=== PATIENT | male | born 1995 | race American Indian/Alaskan Native ===

== ENCOUNTER 2019-04-08 11:05 | Emergency (ER) | payer SELFPAY ==
[2019-04-08] MEDS ORDERED: NACL 0.9% 500 ML 500 ML IV ONE (11:13)
--- NOTE | 2019-04-08 11:35 | Event Note ---
ED Screening Note Date of service: 04/08/19 Time: 11:29 ED Screening Note: 23 y o male presents cc of left arm boils and pain/swelling, draining This initial assessment/diagnostic orders/clinical plan/treatment(s) is/are subject to change based on patients health status, clinical progression and re- assessment by fellow clinical providers in the ED. Further treatment and workup at subsequent clinical providers discretion. Patient/guardian urged not to elope from the ED as their condition may be serious if not clinically assessed and managed. Initial orders include: cbc, bmp
[2019-04-08 11:43] LABS: Basophils # (Auto) 0.1 K/mm3 (0.0-0.1); Basophils % (Auto) 0.9 % (0.0-1.8); Eosinophils # (Auto) 0.3 K/mm3 (0.0-0.4); Eosinophils % (Auto) 2.4 % (0.0-4.3); Hematocrit 46.1 % (35.5-45.6); Hemoglobin 15.5 gm/dl (11.8-15.2); Lymphocytes # (Auto) 3.1 K/mm3 (1.2-5.4); Lymphocytes % (Auto) 27.1 % (13.4-35.0); Mean Corpuscular HGB Conc 34 % (32-34); Mean Corpuscular Volume 81 fl (84-94); Monocytes % (Auto) 9.1 % (0.0-7.3); Platelet Count 411 K/mm3 (140-440); Red Blood Count 5.71 M/mm3 (3.65-5.03); Red Cell Distribution Width 14.3 % (13.2-15.2)
[2019-04-08] MEDS ORDERED: DILAUDID IV ONE (12:04)
[2019-04-08] MEDS ORDERED: ZOFRAN IV ONE (12:04)
[2019-04-08] MEDS ORDERED: CLEOCIN 600 MG/50 mL 600 MG/50 ML BAG IV ONE (12:04)
[2019-04-08] MEDS ORDERED: BOOSTRIX IM ONE (12:09)
--- NOTE | 2019-04-08 12:14 | Emergency Department Report ---
- General Chief complaint: Skin/Abscess/Foreign Body Stated complaint: BUMPS UNDERARM Time Seen by Provider: 04/08/19 11:24 Source: patient Mode of arrival: Ambulatory Limitations: No Limitations - History of Present Illness Initial comments: 23-year-old male with no significant past medical history of obesity presents to the hospital complaining of multiple boils to bilateral axilla. Patient has been having intermittent and boils to bilateral axilla with spontaneous drainage for at least one year. His mother at the bedside apparently was just made aware of this and suggested he come to the ER for evaluation. Patient presents tachycardic but denies significant pain. He also denies fever, nausea, vomiting, diarrhea, or decreased by mouth intake. Tetanus status is unclear. Patient has not had I&D of an abscess in the past - Related Data Allergies Allergy/AdvReac Type Severity Reaction Status Date / Time No Known Allergies Allergy Unverified 04/08/19 11:13 Abscess Boil HPI - HPI Chief Complaint: Skin/Abscess/Foreign Body Stated Complaint: BUMPS UNDERARM Time Seen by Provider: 04/08/19 11:24 Allergies/Adverse Reactions: Allergies Allergy/AdvReac Type Severity Reaction Status Date / Time No Known Allergies Allergy Unverified 04/08/19 11:13 ED Review of Systems ROS: Stated complaint: BUMPS UNDERARM Other details as noted in HPI Comment: All other systems reviewed and negative ED Past Medical Hx - Past Medical History Previous Medical History?: No - Surgical History Past Surgical History?: No - Social History Smoking Status: Never Smoker Substance Use Type: None ED Physical Exam - General Limitations: No Limitations - Other Other exam information: Normal: No acute distress Head: Atraumatic Eyes: Normal appearance, pupils equally reactive to light, extraocular movements intact ENT: Moist mucous membranes Neck: Normal appearance, no midline cervical tenderness, no meningismus Chest: Clear to auscultation bilaterally, no wheezes, rales, crackles Cardiovascular: Tachycardic regular rhythm Abdomen: Soft, nontender, nondistended, no rebound or guarding, normal bowel sounds Back: Normal. Extremity: Right axilla Neuro: Alert and oriented 3, speech normal, no gross motor sensory deficit Skin: Right axilla with a large abscess with mild central drainage or fluctuance with skin induration and redness extending to the left anterior shoulder. Patient also has other indurated areas and openings represent areas of previous spontaneous drainage. Left axilla has several areas of induration without fluctuance or active drainage. Mild tenderness to palpation to Psych: Appropriate ED Course Vital Signs 04/08/19 04/08/19 04/08/19 11:08 11:55 14:31 Temperature 99.3 F 98 F 98.8 F Pulse Rate 130 H 124 H 89 Respiratory 22 19 20 Rate Blood Pressure 155/105 Blood Pressure 154/93 146/78 [Left] O2 Sat by Pulse 98 99 96 Oximetry - I & D Right Arm Type of Procedure: Simple Site: right axilla Blade Size: 11 I & D Procedure: betadine prep, sterile drapes applied, sterile dressing applied, gauze wick placed ED Medical Decision Making - Lab Data Result diagrams: 04/08/19 11:26 04/08/19 12:30 Lab Results 04/08/19 04/08/19 04/08/19 Range/Units 11:26 12:30 12:30 WBC 11.4 H (4.5-11.0) K/mm3 RBC 5.71 H (3.65-5.03) M/mm3 Hgb 15.5 H (11.8-15.2) gm/dl Hct 46.1 H (35.5-45.6) % MCV 81 L (84-94) fl MCH 27 L (28-32) pg MCHC 34 (32-34) % RDW 14.3 (13.2-15.2) % Plt Count 411 (140-440) K/mm3 Lymph % (Auto) 27.1 (13.4-35.0) % Brooks % (Auto) 9.1 H (0.0-7.3) % Eos % (Auto) 2.4 (0.0-4.3) % Baso % (Auto) 0.9 (0.0-1.8) % Lymph # 3.1 (1.2-5.4) K/mm3 Brooks # 1.0 H (0.0-0.8) K/mm3 Eos # 0.3 (0.0-0.4) K/mm3 Baso # 0.1 (0.0-0.1) K/mm3 Seg Neutrophils % 60.5 (40.0-70.0) % Seg Neutrophils # 6.9 (1.8-7.7) K/mm3 VBG pH 7.314 L (7.320-7.420) Sodium (137-145) mmol/L Potassium (3.6-5.0) mmol/L Chloride (98-107) mmol/L Carbon Dioxide (22-30) mmol/L Anion Gap mmol/L BUN (9-20) mg/dL Creatinine (0.8-1.5) mg/dL Estimated GFR ml/min BUN/Creatinine Ratio % Glucose (75-100) mg/dL Lactic Acid 2.30 H* (0.7-2.0) mmol/L Calcium (8.4-10.2) mg/dL 04/08/19 Range/Units 12:30 WBC (4.5-11.0) K/mm3 RBC (3.65-5.03) M/mm3 Hgb (11.8-15.2) gm/dl Hct (35.5-45.6) % MCV (84-94) fl MCH (28-32) pg MCHC (32-34) % RDW (13.2-15.2) % Plt Count (140-440) K/mm3 Lymph % (Auto) (13.4-35.0) % Brooks % (Auto) (0.0-7.3) % Eos % (Auto) (0.0-4.3) % Baso % (Auto) (0.0-1.8) % Lymph # (1.2-5.4) K/mm3 Brooks # (0.0-0.8) K/mm3 Eos # (0.0-0.4) K/mm3 Baso # (0.0-0.1) K/mm3 Seg Neutrophils % (40.0-70.0) % Seg Neutrophils # (1.8-7.7) K/mm3 VBG pH (7.320-7.420) Sodium 138 (137-145) mmol/L Potassium 3.4 L (3.6-5.0) mmol/L Chloride 99.1 (98-107) mmol/L Carbon Dioxide 25 (22-30) mmol/L Anion Gap 17 mmol/L BUN 7 L (9-20) mg/dL Creatinine 0.9 (0.8-1.5) mg/dL Estimated GFR > 60 ml/min BUN/Creatinine Ratio 8 % Glucose 95 (75-100) mg/dL Lactic Acid (0.7-2.0) mmol/L Calcium 9.5 (8.4-10.2) mg/dL - EKG Data -: EKG Interpreted by Me EKG shows normal: sinus rhythm, axis (qrs 58), QRS complexes (qrsd 86), ST-T waves (no stemi) Rate: tachycardia (104) - Medical Decision Making pt tolerated I and D hr improved with pain meds and IVF no signs of severe sepsis or septic shock pt tx with clindamycin tetanus provided [facility] description of hidradenitis superlative provided to patient since we do not have the specific diagnosis instructions will be d/alexia on bactrim - Differential Diagnosis abscess, sepsis, hidradenitis suppurativa Critical Care Time: No Critical care attestation.: If time is entered above; I have spent that time in minutes in the direct care of this critically ill patient, excluding procedure time. ED Disposition Clinical Impression: Hidradenitis suppurativa, Abscess, Encounter for incision and drainage procedure Disposition: TO HOME OR SELFCARE Is pt being admited?: No Condition: Stable Instructions: Abscess (ED) Additional Instructions: Taken medications as prescribed. Follow-up with your doctor or the clinic/doctor provided. Return if symptoms worsen. Return in 2-3 days for packing removal and reassessment. Referrals: BARBRA MOROCHO MD [Primary Care Provider] - 3-5 Days [facility] [Provider Group] - 3-5 Days OTTONIEL BLANCO MD [Staff Physician] - 3-5 Days Time of Disposition: 14:41
[2019-04-08] MEDS ORDERED: NACL 0.9% 1000 ML 1,000 ML IV ONE (12:25)
[2019-04-08] MEDS ORDERED: XYLOCAINE 1%/ EPI 1:100,000 INFILTRATI NR (13:00)
[2019-04-08 14:04] LABS: BUN/Creatinine Ratio 8; Blood Urea Nitrogen 7 mg/dL (9-20); Calcium 9.5 mg/dL (8.4-10.2); Hemolysis Index 4
[2019-04-08] MEDS ORDERED: K-DUR PO ONE (14:27)
[2019-04-08 14:32] VITALS: BP 146/78
== END 2019-04-08 15:07 | disposition home or self-care (01) ==
LOC: ED 11:05
DX: L73.2 Hidradenitis suppurativa (principal)
CPT/HCPCS: 10060; 36415; 80048; 82140; 82805; 82962; 85025; 87040; 87116; 90471; 90715; 93005; 93010; 96374; 96375; 99284; J1170; J2405; J7030

== ENCOUNTER 2019-04-10 10:03 | Emergency (ER) | payer SELFPAY ==
[2019-04-10 10:11] VITALS: BP 154/103
--- NOTE | 2019-04-10 10:49 | Emergency Department Report ---
Suture/Staple Removal - [facility] Chief Complaint: Laceration/Recheck/Suture Stated Complaint: RT ARM REMOVAL PACKING Time Seen by Provider: 04/10/19 10:44 When Sutures or [place] Placed: 2 days Wound Location: right axilla ED Review of Systems ROS: Stated complaint: RT ARM REMOVAL PACKING Other details as noted in HPI Constitutional: denies: chills, fever Eyes: denies: eye pain, eye discharge, vision change ENT: denies: ear pain, throat pain Respiratory: denies: cough, shortness of breath, wheezing Cardiovascular: denies: chest pain, palpitations Endocrine: no symptoms reported Gastrointestinal: denies: abdominal pain, nausea, diarrhea Genitourinary: denies: urgency, dysuria Musculoskeletal: denies: back pain, joint swelling, arthralgia Skin: denies: rash, lesions Neurological: denies: headache, weakness, paresthesias Psychiatric: denies: anxiety, depression Hematological/Lymphatic: denies: easy bleeding, easy bruising ED Past Medical Hx - Past Medical History Previous Medical History?: No - Surgical History Past Surgical History?: No - Social History Smoking Status: Never Smoker Substance Use Type: Alcohol - Medications Home Medications: Home Medications Medication Instructions Recorded Confirmed Last Taken Type Ibuprofen [Motrin] 800 mg PO Q8HR PRN #30 tablet 04/08/19 Unknown Rx Sulfamethoxazole/Trimethoprim 1 each PO BID #20 tablet 04/08/19 Unknown Rx [Bactrim DS TAB] traMADol [Ultram 50 MG tab] 50 mg PO Q6HR PRN #14 tablet 04/08/19 Unknown Rx Suture Removal Exam - Exam General: Vital signs noted. No distress. Alert and acting appropriately. Wound: No Pathologic Erythema, No Tenderness, No Drainage, No Pus, No Wound Dehiscence Other Systems: All other systems reviewed and are unremarkable. ED Course Vital Signs 04/10/19 10:09 Temperature 98.8 F Pulse Rate 106 H Respiratory 20 Rate Blood Pressure 154/103 O2 Sat by Pulse 97 Oximetry - Reevaluation(s) Reevaluation #1: 04/10/19 10:47 Patient is speaking in full sentences with no signs of distress noted. ED Recheck MDM - Medical Decision Making 23-year-old male that presents with a right axilla packing removal. Patient is stable and was examined by me. One fourth iodoform packing has been removed and patient tolerable. No signs of induration or fluctuance. No swelling. Patient was educated on proper wound care. Patient was instructed to continue taking antibiotics. Patient was instructed to Follow-up with a primary care doctor in 3-5 days or if symptoms worsen and continue return to emergency room as soon as possible. At time of discharge, the patient does not seem toxic or ill in appearance. No acute signs of distress noted. Patient agrees to discharge treatment plan of care. No further questions noted by the patient. Critical care attestation.: If time is entered above; I have spent that time in minutes in the direct care of this critically ill patient, excluding procedure time. ED Disposition Clinical Impression: Abscess packing removal Disposition: - TO HOME OR SELFCARE Is pt being admited?: No Does the pt Need Aspirin: No Condition: Stable Instructions: Acute Wound Care (ED) Additional Instructions: Follow-up with a primary care doctor in 3-5 days or if symptoms worsen and continue return to emergency room as soon as possible. Continue taking antibiotics as prescribed during your previous visit. Referrals: BARBRA MOROCHO MD [Primary Care Provider] - 3-5 Days INGRID SMITH MD [Staff Physician] - 3-5 Days [facility] [Outside] - 3-5 Days Forms: Work/School Release Form(ED)
== END 2019-04-10 10:55 | disposition home or self-care (01) ==
LOC: ED 10:03
DX: Z48.00 Encounter for change or removal of nonsurgical wound dressing (principal)

== ENCOUNTER 2019-06-02 19:23 | Emergency (ER) | payer SELFPAY ==
--- NOTE | 2019-06-02 19:46 | Emergency Department Report ---
Blank Doc - Documentation Documentation: 24 y/o male with hidradenatitis presents to ED c/o of continued discharge and pain to axilla for the last 6 weeks despite reported I&D VSS not available\ This initial assessment/diagnostic orders/clinical plan/treatment(s) is/are subject to change based on patient's health status, clinical progression and re- assessment by fellow clinical providers in the ED. Further treatment and workup at subsequent clinical providers discretion. Patient/guardians urged not to elope from the ED as their condition may be serious if not clinically assessed and managed. Initial orders include:
--- NOTE | 2019-06-02 21:57 | Emergency Department Report ---
Abscess Boil HPI - HPI Chief Complaint: Skin/Abscess/Foreign Body Stated Complaint: ABSCESS UNDER RIGHT ARM Time Seen by Provider: 06/02/19 19:42 Duration: >1 Week Location: Upper Extremity (right axilla) Severity: Moderate History: Yes Pain, Yes Purulent Drainage, No Fever, No Numbness, No Foreign Body, No Previous History, No Insect Bite HPI: This is a 24-year-old -[place] male who presents to the emergency room with an abscess to right axilla. Patient states he head I&D 6 weeks ago and continues to have purulent drainage. Past medical history of hydradenitis suppurativa. Patient states abscess continues to drain purulent foul-smelling drainage. Patient states he is clean area with soap and water and applying gauze dressing. Home Medications: Previous Rx's Medication Instructions Recorded Last Taken Type Ibuprofen [Motrin] 800 mg PO Q8HR PRN #30 tablet 04/08/19 Unknown Rx Sulfamethoxazole/Trimethoprim 1 each PO BID #20 tablet 04/08/19 Unknown Rx [Bactrim DS TAB] traMADol [Ultram 50 MG tab] 50 mg PO Q6HR PRN #14 tablet 04/08/19 Unknown Rx Clindamycin [Clindamycin CAP] 300 mg PO BID #20 capsule 06/02/19 Unknown Rx Allergies/Adverse Reactions: Allergies Allergy/AdvReac Type Severity Reaction Status Date / Time No Known Allergies Allergy Unverified 04/08/19 11:13 ED Review of Systems ROS: Stated complaint: ABSCESS UNDER RIGHT ARM Other details as noted in HPI Constitutional: denies: chills, fever Respiratory: denies: cough, shortness of breath, wheezing Cardiovascular: denies: chest pain, palpitations Gastrointestinal: denies: abdominal pain, nausea, diarrhea Skin: lesions (painful abscess right axilla). denies: rash Neurological: denies: headache, weakness, paresthesias Psychiatric: denies: anxiety, depression ED Past Medical Hx - Past Medical History Previous Medical History?: No - Surgical History Past Surgical History?: No - Social History Smoking Status: Never Smoker Substance Use Type: None - Medications Home Medications: Home Medications Medication Instructions Recorded Confirmed Last Taken Type Ibuprofen [Motrin] 800 mg PO Q8HR PRN #30 tablet 04/08/19 Unknown Rx Sulfamethoxazole/Trimethoprim 1 each PO BID #20 tablet 04/08/19 Unknown Rx [Bactrim DS TAB] traMADol [Ultram 50 MG tab] 50 mg PO Q6HR PRN #14 tablet 04/08/19 Unknown Rx Clindamycin [Clindamycin CAP] 300 mg PO BID #20 capsule 06/02/19 Unknown Rx ED Abscess Boil Physical Exam - Exam General: Vital signs noted. No distress. Alert and acting appropriately. Front/Back of Body, Lg (Color): 1 - Half a centimeter nonfluctuant nodule to the right axilla, purulent discharge, tenderness, no surrounding cellulitis Size: 1 cm Exam: Yes Tenderness, Yes Normal Neurologic Exam, Yes Normal Circulation, No Fluctuance, No Surrounding Cellulites/Erythema, No Lymphangitis, No Crepitation, No Heart Murmur ED Course Vital Signs 06/02/19 20:50 Temperature 98.5 F Pulse Rate 110 H Respiratory 20 Rate Blood Pressure 160/105 O2 Sat by Pulse 97 Oximetry Vital Signs 06/02/19 06/02/19 20:50 22:18 Temperature 98.5 F Pulse Rate 110 H 101 H Respiratory 20 18 Rate Blood Pressure 160/105 Blood Pressure 156/95 [Left] O2 Sat by Pulse 97 97 Oximetry Critical care attestation.: If time is entered above; I have spent that time in minutes in the direct care of this critically ill patient, excluding procedure time. ED Medical Decision Making - Medical Decision Making This is a 24 y.o. male that presents with a painful abscess to right axilla for 6 days. Past medical history of hydradenitis suppurativa. Patient is stable and examined by me. No acute signs of distress noted. Abscess is currently draining and an nonfluctuant. I&D is not indicated at this time. Discussed plan to start clindamycin with patient. Referral to mothers helper. Patient agrees to ED plan of care. Discharged home and follow up with PCP in 2-3 days. ED Disposition Clinical Impression: Abscess of axilla, right, Hidradenitis suppurativa of right axilla Disposition: TO HOME OR SELFCARE Is pt being admited?: No Condition: Stable Instructions: Abscess (ED) Prescriptions: Clindamycin [Clindamycin CAP] 300 mg PO BID #20 capsule Referrals: [facility] [Provider Group] - 3-5 Days [facility] [Outside] - 3-5 Days Time of Disposition: 22:11
[2019-06-02 22:19] VITALS: BP 156/95
== END 2019-06-02 22:18 | disposition home or self-care (01) ==
LOC: ED 19:23
DX: L02.411 Cutaneous abscess of right axilla (principal); L73.2 Hidradenitis suppurativa; Z79.899 Other long term (current) drug therapy
CPT/HCPCS: 99282